=== PATIENT | male | born 1985 | race African-American/Black ===

== ENCOUNTER 2022-08-24 13:12 | Emergency (ER) | payer MEDICAID ==
[~2022-08-24] VITALS: Ht 177.8 cm; Wt 95.3 kg
[2022-08-24 13:19] VITALS: BP_SYST 118; BP_SYST 142
--- NOTE | 2022-08-24 15:00 | NUR ---
MD MATTA IN TRIAGE FOR MSE.
[2022-08-24] MEDS ORDERED: FAMOTIDINE 20 MG TABLET PO ONE (15:15)
[2022-08-24] MEDS ORDERED: LIDOCAINE VISCOUS 2%, 15 ML UDC MM ONE (15:15)
[2022-08-24] MEDS ORDERED: MAG-AL HYDROX/SIMETH 30 ML UDC PO ONE (15:15)
--- NOTE | 2022-08-24 15:30 | NUR ---
PT ELOPED, ATTEMPTED TO CALL IN LOBBY, RESTROOM AND OUTSIDE ER ENTRANCE, NO ANSWER. UNABLE TO MEDICATE PT. PRIOR ASSESSMENT SHOWED VSS, NAD NOTED. MD MATTA AND HOME AID KEITH NOTIFIED.
== END 2022-08-24 15:30 | disposition left against medical advice (07) ==
LOC: SED 13:12
DX: R10.13 Epigastric pain (principal); J02.9 Acute pharyngitis, unspecified; Z79.899 Other long term (current) drug therapy
CPT/HCPCS: 99282

== ENCOUNTER 2023-10-20 16:06 | Emergency (ER) | payer MEDICAID ==
[~2023-10-20] VITALS: Ht 177.8 cm; Wt 127.0 kg
[~2023-10-20 16:06] MED LIST: MECL-292 PO
[2023-10-20 16:43] VITALS: BP_SYST 142; PULSE 116; RESP 18; TEMP 98.3; O2SAT 98
[2023-10-20 17:38] LABS: BARBITURATE, URINE NEGATIVE (NEG <=200); BENZODIAZEPINE, URINE NEGATIVE (NEG <=150); CANNABINOID, URINE NEGATIVE (NEG <=50); COCAINE, URINE NEGATIVE (NEG <=150); METHAMPHETAMINES SCREEN,URINE NEGATIVE (NEG <=500); OPIATE, URINE NEGATIVE (NEG <=100); PHENCYCLIDINE SCREEN,URINE NEGATIVE (NEG <=25); UR TRICYCLIC ANTIDEPRESSANTS NEGATIVE (NEG <=300); URINE AMPHETAMINE NEGATIVE (NEG <=500); URINE METHADONE NEGATIVE (NEG <=200); URINE OXYCODONE SCREEN NEGATIVE (NEG <=100)
== END 2023-10-20 17:50 | disposition left against medical advice (07) ==
LOC: SED 16:06
DX: Z00.00 Encounter for general adult medical examination without abnormal findings (principal); R44.1 Visual hallucinations
CPT/HCPCS: 80307; 99283